=== PATIENT | male | born 1985 | race Native Hawaiian/Other Pacific Islander ===

== ENCOUNTER 2020-05-27 08:54 | Outpatient (CLI) | payer OTHER ==
[2020-05-27] MEDS ORDERED: BUFFERED LIDOCAINE 10 ML SYRINGE ONE (09:08)
[2020-05-27] MEDS ORDERED: GADOBUTROL 7.5 MMOL/7.5 ML VIAL ONE (09:09)
[2020-05-27] MEDS ORDERED: BUFFERED LIDOCAINE 10 ML SYRINGE IU ONE (11:00)
[2020-05-27] MEDS ORDERED: iohexoL-240 10 ML VIAL IVP ONE (11:01)
[2020-05-27] MEDS ORDERED: GADOBUTROL 7.5 MMOL/7.5 ML VIAL IVP ONE (11:01)
--- NOTE | 2020-05-27 11:52 | MRI Report ---
PROCEDURE: Arthrogram Shoulder RT INDICATIONS: RT SHOULDER PAIN, INSTABILITY CONTRAST: 12 mL of diluted intra-articular gadolinium contrast. TECHNIQUE: After the administration of 12 mL of dilute intra-articular Gadolinium contrast, oblique coronal T1 a nd T2 spin echo with fat saturation, oblique sagittal T1 spin echo with and without fat saturation, o blique sagittal T2 fast spin echo with fat saturation, axial T1 spin echo with fat saturation through the shoulder. COMPARISON: None. FINDINGS: Image quality: Excellent. Rotator cuff: Tendinosis and low-grade articular surface partial-thickness tear involving distal supr aspinatus at its insertion on humeral head is seen. Distal infraspinatus and subscapularis tendons ar e intact. No full-thickness rotator cuff tendon rupture. No rotator cuff muscle atrophy on sagittal i mages. Bones and bursae: No bone marrow contusions or fractures. No acromioclavicular joint degeneration. The acromion demonstrates conventional anatomy, without an os acromiale. Capsule and soft tissues: The labrum and glenohumeral ligaments appear intact. The long head of the biceps tendinosis and low to moderate grade partial-thickness tear is seen.. The rotator interval a ppears normal, without fibrosis. The coracohumeral ligament is of normal thickness. No intra-articu lar bodies. IMPRESSION: 1. No evidence of focal labral tear. 2. Tendinosis and low-grade articular surface partial-thickness tear involving distal supraspinatus a t its insertion on humeral head. 3. Tendinosis and low to moderate grade partial-thickness tear involving proximal intra-articular por tion of long head of biceps. Reviewed by: Brendan Andrews MD on 05/27/2020 10:50 AM [facility] Approved by: Brendan Andrews MD on 05/27/2020 10:50 AM [facility] Station ID: [id number]
--- NOTE | 2020-05-27 14:39 | XRAY Report ---
PROCEDURE: Arthrogram Needle Placement INDICATIONS: RT SHOULDER PAIN, INSTABILITY CONTRAST: Omnipaque 1cc and Dotarem 0.2cc/20cc normal saline. FLUOROSCOPY TIME: FLUORO TIME: 23 sec and NUMBER IMAGES: 2 TECHNIQUE: The indications, alternatives, benefits, risks, and complications of the procedure were explained to the patient. Written informed consent was obtained and placed in the chart. The shoulder was examin ed fluoroscopically and a site for needle placement chosen for entry into the glenohumeral joint from an anterior approach. The skin was prepped and draped in the usual fashion, and 1% lidocaine infilt rated from skin down to joint capsule. A spinal needle was inserted into the glenohumeral joint, and a small amount of iodinated contrast media injected to confirm intra-articular placement of the need le tip. This was followed by approximately 12 mL dilute solution of a gadolinium containing MR contr ast agent. The needle was removed and a dressing was applied. The patient was given postprocedural instructions and sent to the MR suite for MR imaging. FINDINGS: A single fluoroscopic spot image demonstrates intra-articular location of injected iodinated contrast . IMPRESSION: Successful fluoroscopically guided administration of dilute Gadolinium solution into the shoulder mario alberto [email or web address] for MR arthrogram. Reviewed by: Dione Gonzalez MD, PhD on 05/27/2020 2:38 PM PST Approved by: Dione Gonzalez MD, PhD on 05/27/2020 2:38 PM PST Station ID: [id number]
== END 2020-05-27 08:55 | disposition home or self-care (01) ==
LOC: DI 08:54
PROVIDERS: ATTEND Orthopaedic Surgery
DX: M75.111 Incomplete rotator cuff tear or rupture of right shoulder, not specified as traumatic (principal); S46.121A Laceration of muscle, fascia and tendon of long head of biceps, right arm, initial encounter
CPT/HCPCS: 23350; 73222; 77002; A9585; Q9966

== ENCOUNTER 2020-06-24 06:30 | Day surgery (SDC) | payer OTHER ==
[~2020-06-24 06:30] MED LIST: cefTRIAXone 2 GM VIAL ONE
[2020-06-24] MEDS ORDERED: LACTATED RINGERS 1,000 ML IV ONE ×2 (06:31→12:21)
[2020-06-24] MEDS ORDERED: EPINEPHrine 1 MG/ML AMP ONE (07:09)
[2020-06-24] MEDS ORDERED: BUPIVACAINE 0.25% PF 30 ML VIAL ONE (07:43)
[2020-06-24] MEDS ORDERED: ONDANSETRON 4 MG/2 ML VIAL IVP PRN ×2 (08:32→12:17)
[2020-06-24] MEDS ORDERED: ATROPINE ABBOJECT 1 MG/10 ML SYRINGE IVP PRN (08:32)
[2020-06-24] MEDS ORDERED: MORPHINE 2 MG/ML CARPUJECT IVP PRN (08:32)
[2020-06-24] MEDS ORDERED: HYDROmorphone 0.5 MG/0.5 ML SYRINGE IVP PRN (08:32)
[2020-06-24] MEDS ORDERED: ePHEDrine 50 MG/ML VIAL IVP PRN (08:32)
[2020-06-24] MEDS ORDERED: fentaNYL 100 MCG/2 ML VIAL IVP PRN (08:32)
[2020-06-24] MEDS ORDERED: NALOXONE 0.4 MG/ML VIAL IVP PRN (08:32)
--- NOTE | 2020-06-24 08:35 | ANESTHESIA ---
Pre-Anesthesia VS, & Labs - Diagnosis Right Shoulder Instability - Procedure Right Shoulder Scope, Rotator Cuff Repair, Distal Clavicle Excision, Labral Repair, Biceps tendonesis. Vital Signs: Temp Pulse Resp BP Pulse Ox 36.1 C L 75 18 127/91 H 97 06/24/20 06:31 06/24/20 06:31 06/24/20 06:31 06/24/20 06:31 06/24/20 06:31 Height: 5 ft 11 in Weight (kg): 104.33 kg Body Mass Index: 32.1 BMI Classification: Obese - NPO >8 hours Last Fluid Intake: 2200 Last Food Intake: 2200 Home Medications and Allergies Home Medications: Ambulatory Orders Citalopram Hydrobromide [Celexa] 06/20/20 Propranolol [Inderal] 40 mg PO PRN 06/20/20 buPROPion [Wellbutrin Sr] 150 mg PO BID 06/20/20 Active Medications Atropine Sulfate (Atropine Abboject 1 Mg/10 Ml Syringe) 0.5 mg IVP Q5M PRN PRN Reason: Bradycardia Stop: 06/25/20 08:32 Ephedrine Sulfate (Ephedrine 50 Mg/Ml Vial) 10 mg IVP Q5M PRN PRN Reason: HYPOTENSION Stop: 06/25/20 08:32 Fentanyl (Fentanyl 100 Mcg/2 Ml Vial) 25 - 50 mcg IVP Q5M PRN PRN Reason: BREAKTHROUGH PAIN (2nd Choice) Stop: 06/25/20 08:32 Hydromorphone HCl (Hydromorphone 0.5 Mg/0.5 Ml Syringe) 0.2 - 0.6 mg IVP Q5M PRN PRN Reason: PAIN (First Choice) Stop: 06/25/20 08:32 Lactated Ringer's (Lr) 1,000 mls @ 100 mls/hr IV .Q10H JAREN Stop: 06/24/20 18:59 Morphine Sulfate (Morphine 2 Mg/Ml Carpuject) 2 - 4 mg IVP Q5M PRN PRN Reason: PAIN (3rd Choice) Stop: 06/25/20 08:32 Naloxone HCl (Naloxone 0.4 Mg/Ml Vial) 0.1 mg IVP Q2M PRN PRN Reason: RESP RATE <8 Stop: 06/25/20 08:32 Ondansetron HCl (Ondansetron 4 Mg/2 Ml Vial) 4 mg IVP ONCE PRN PRN Reason: N/V (First Choice) Stop: 06/25/20 08:32 Citalopram Hydrobromide [Celexa] 06/20/20 Propranolol [Inderal] 40 mg PO PRN 06/20/20 buPROPion [Wellbutrin Sr] 150 mg PO BID 06/20/20 Allergies/Adverse Reactions: Allergies Allergy/AdvReac Type Severity Reaction Status Date / Time No Known Drug Allergies Allergy Verified 06/20/20 10:53 Anes History & Medical History - Anesthetic History Anesthesia Complications: reports: No previous complications Family history of Anesthesia Complications: Denies Family history of Malignant Hyperthermia: Denies - Medical History Cardiovascular: reports: None Pulmonary: reports: None Gastrointestinal: reports: None Urinary: reports: None Neuro: reports: None Musculoskeletal: reports: Other Endocrine/Autoimmune: reports: None Blood Disorders: reports: None Skin: reports: None Smoking Status: Never smoker Psychosocial: reports: Other (Anxiety, depression, PTSD) History of Cancer?: No Exam General: Alert, Oriented x3, Cooperative, No acute distress Dental: WNL, Other (Lower incisor chipped) Mouth Openin Fingerbreadth Neck Mobility: Normal Mallampati classification: II Thyromental Distance: 4-6 cm Respiratory: Lungs clear, Normal breath sounds, No respiratory distress, No accessory muscle use Cardiovascular: Regular rate, Normal S1, Normal S2, No murmurs Mental/Cognitive Status: Alert/Oriented X3, Normal for patient Cognitive Status: Within normal limits Plan Anesthesia Type: General, Interscalene Block, Other (Superficial Cervical) Consent for Procedure(s) Verified and Reviewed: Yes Code Status: Attempt Resuscitation ASA classification: 2-Mild systemic disease Is this case an emergency?: No
[2020-06-24] MEDS ORDERED: BUPIVACAINE 0.25% PF 30 ML VIAL SUBQ ONE ×2 (08:55)
[2020-06-24] MEDS ORDERED: LACTATED RINGERS 1,000 ML IV SCH (09:00)
[2020-06-24] MEDS ORDERED: oxyCODONE 5 MG TABLET PO PRN (12:17)
--- NOTE | 2020-06-24 12:27 | OPERATIVE REPORT ---
Operative Report - General Procedure Date: 06/24/20 - Procedure Note Anesthesia Technique: General ET tube, Regional block Estimated Blood Loss (mL): 25 Complications: None - Other Other Information/Narrative: Date of Procedure: 24 June 2020 Planned Procedure: Right shoulder arthroscopy, labral repair, biceps tenodesis, open distal clavicle excision Pre-op diagnosis: Right shoulder instability, AC joint arthritis, biceps tendinitis/SLAP tear Procedure performed: Right shoulder arthroscopy anterior, inferior and posterior labral repair, open distal clavicle excision Post-op diagnosis: Right shoulder instability, approximately 170 degree labral tear, AC joint arthritis Primary Surgeon: RAJINDER NÚÑEZ Secondary Surgeon: Kandice Anesthesia: General endotracheal anesthesia with regional block EBL: 25 ml IMPLANTS: Arthrex 3 mm knotless suture tack x7 POSTOPERATIVE PLAN: 0-2 weeks-Sling at all times. Pendulum exercises 5 times per day. 2-6 weeks-Passive range of motion with the following limits: FF to 120, ER to 40, abduction to 90 6-12 weeks-Active range of motion in all planes without limitation. Isometric rotator cuff strengthening is allowed 12-16 weeks-Gradually increase strengthening 16 weeks and beyond-Introduce dynamic activities EXAMINATION UNDER ANESTHESIA: ROM: Forward flexion 180 degrees, abduction 170 degrees, ABER 90 degrees, ABIR 80 degrees Anterior load and shift: 1+ Posterior load and shift: 1+ ARTHROSCOPIC FINDINGS: Rotator interval: Overall normal with minimal fraying Biceps tendon & SLAP: The biceps tendon was intact, of normal caliber, without injection fraying or tearing. It had a stable insertion on the superior labrum. There was some subtle peelback of the superior labrum, without melody tear. Overall the superior labrum was stable. Mild edge fraying was debrided gently with the arthroscopic sucker shaver. Based on the overall normal appearance of both the superior labrum and the biceps tendon, the decision was made to not perform a biceps tenodesis. Subscapularis: Intact with mild insertional fraying Rotator Cuff: Intact HAGL: None Labrum: The labrum was torn from approximately 3:00 anteriorly, to approximately 8:00 posteriorly the anterior labral tear was near complete thickness where is the posterior tear was more consistent with a cam lesion. Both were easily elevated with the arthroscopic labral elevators. Glenoid Cartilage: Overall intact Humeral Head Cartilage: Overall intact INDICATIONFOR SURGERY: 35-year-old [id number] male who originally presented following a shoulder instability event in July 2019. He was rehabbed nonoperatively from that and did well for approximately 6 months. In March, he sustained a second instability event, with increasing shoulder pain and loss of trust in the shoulder. A repeat MR arthrogram of the right shoulder was completed which was consistent with progression of the previously noted anterior-inferior labral tear. We had a lengthy discussion about options to include continued nonoperative treatment with the primary risk of recurrent instability versus operative treatment consisting of right shoulder arthroscopy, labral repair, biceps tenodesis and open distal clavicle excision based on preoperative clinical exam. Ultimately, as nonoperative managment failed to resolve symptoms. The risks, benefits, and alternatives were discussed. Risks included pain, bleeding, infection, damage to nearby structures, lack of symptom relief, implant complications, stiffness, need for further surgeries, DVT, PE, stroke, and even . He signed a written consent form. PROCEDURE IN DETAIL: The patient was met in the preoperative holding on the day of the procedure. Operative extremity was signed. Consent was verified. He desired to proceed. Regional anesthesia was obtained in the preoperative area. They were brought to the operating room and surrendered to anesthesia. Once general anesthesia was obtained they were placed in the lateral decubitus position with the operative side up. An axillary roll was placed and all bony prominences were well-padded. They were then prepped and draped in the standard sterile fashion. A surgical timeout was held to confirm the patient procedure, identity, procedure, laterality, allergies, images, and antibiotics. All were in agreement we proceeded. Balanced suspension was applied and a standard diagnostic arthroscopy was performed utilizing posterior and anterior superior portal sites. The anterior superior portal site was created under direct visualization. The findings of the diagnostic arthroscopy can be found above. An anterior mid glenoid portal just above the subscapularis was established under direct visualization. The labrum was prepared using a combination of high and low angled elevators, the arthroscopic sucker shaver and the pineapple rasp. The extent of the labral tear was from approximately 3:00 anteriorly around inferiorly and posteriorly to approximately 8:30. The labrum was systematically freed up until it had good mobility and the subscap was visible through the interval between the labrum and the glenoid. The arthroscopic sucker shaver was used to debride the edge of the cartilage to make room for anchor placement. The pineapple rasp was used to debride any remaining soft tissue off the glenoid neck. A posterior percutaneous portal was established using the Arthrex system, and anchors were sequentially placed from approximately 6:30 posterior and then moving posteriorly and superiorly. The first anchor was placed, and the appropriate suture lasso was used to pass the suture around the capsulolabral tissue. The anchor was then secured in knotless fashion. This was repeated using the percutaneous portal for the 7:30 anchor and 8:30 anchor. When placing the 830 anchor, the locking mechanism and the anchor became jammed, and further advancement resulted in breakage of the suture. The suture was grasped with a [place] and cut at the anchor using a sidecutting suture cutter. The anchor was well placed and secure, and was not removed. An anchor was placed just superior, and this was passed and secured in the usual fashion without difficulty. Once the posterior labral repair was complete, attention was turned anteriorly. Anchors were placed at the 3:00, 4:00 and 5:30 position. Once the anchor placement was complete and the capsule labral tissue was secured, this resulted in an improved labral bumper, and an appropriate capsular shift. Balance suspension was released, and the glenohumeral joint was viewed through the anterior superior portal. The humeral head was well centered on the glenoid with suspension off. Final images were taken and the arthroscopic fluid was drained from the shoulder. The cannulas were removed, and the attention was turned to the open distal clavicle excision. It had been several hours since the initial prep, so a ChloraPrep stick was opened onto the field and the oakley perior shoulder was reprepped with ChloraPrep. Following this, a spinal needle was used to percutaneously localize the AC joint, and then a 5 cm incision was marked out in line with the clavicle and centered around the AC joint. An 11 blade was used to open the skin and then subcutaneous dissection was completed with electrocautery to obtain hemostasis. Full-thickness skin flaps were made to the level of the fascia/joint capsule. A full-thickness incision was made in line with the clavicle using electrocautery through the periosteum and joint capsule. Anterior and posterior periosteal/capsular flaps were developed with electrocautery and a martinez elevator. 2 Homans were placed around the distal clavicle. A rongeur was used to debride the degenerated intra-articular disc. An 8 mm resection was measured and performed with a sagittal saw. Care was taken to ensure this cut was parallel to the joint surface and slightly thicker posteriorly. All sharp bony edges were rounded. A finger was placed with into the defect and the arm was adducted fully without any impingement in the joint. The joint was then irrigated copiously. A watertight capsular and fascial closure was performed with 0 Vicryl. The deep dermal layer was closed with 0 Vicryl interrupted, followed by 2-0 interrupted Vicryl more superficially. The skin was closed superficially using running 3-0 Monocryl in subcuticular fashion. The portal sites were then closed with 3-0 Monocryl buried. Mastisol and Steri- Strips were applied. 10 mL of quarter percent Marcaine was injected around the distal clavicle incision. Xeroform was applied followed by a sterile dressing and a sling. He was awakened and transferred to the recovery room.
[2020-06-24] MEDS ORDERED: HYDROmorphone 0.5 MG/0.5 ML SYRINGE ONE (12:52)
[2020-06-24] MEDS ORDERED: ONDANSETRON 4 MG/2 ML VIAL ONE (12:57)
--- NOTE | 2020-06-24 13:55 | ANESTHESIA POST OP EVALUATION ---
Anesthesia Post Eval - Post Anesthesia Eval Vitals: Last Vital Signs Temp 36.8 C 06/24/20 13:10 Pulse 90 06/24/20 13:15 Resp 16 06/24/20 13:15 BP 137/99 H 06/24/20 13:15 Pulse Ox 95 06/24/20 13:15 CV Function Including HR & BP: positive: Stable Pain Control: positive: Satisfactory Nausea & Vomiting: positive: Negative Mental Status: positive: Patient Participates Respiratory Status: Airway Patent Hydration Status: Satisfactory Anesthesia Complications: positive: None
[2020-06-24 14:33] VITALS: BP 143/103
== END 2020-06-24 06:31 | disposition home or self-care (01) ==
LOC: SDS 06:30
PROVIDERS: ATTEND Orthopaedic Surgery
DX: S43.491A Other sprain of right shoulder joint, initial encounter (principal); M19.011 Primary osteoarthritis, right shoulder; M25.311 Other instability, right shoulder; E66.9 Obesity, unspecified; Z68.32 Body mass index [BMI] 32.0-32.9, adult